=== PATIENT | female | born 1955 | race Caucasian/White ===

== ENCOUNTER 2022-09-08 01:02 | Day surgery (SDC) | payer MEDICARE, OTHER, SELFPAY ==
--- NOTE | 2022-08-28 11:48 | PC.NURSE ---
Report to the Outpatient Waiting Room, entrance under the green pavilion located off [facility], at time 0600 on date _09/08/22 . OR Time: __07 . Time changes happen often and if your time is changed the preop area will call you the afternoon before. - You and your visitor will be asked to self-screen and do not enter if you have any COVID symptoms. - We encourage only one visitor and NO visitors under age 16 are allowed at this time. Your visitor will receive communication by the phone number that is given day of service. - The patient visitor is requested to social distance or may leave the building when not with patient due to restrictions. - A mask is required within the hospital. Patients may have clear liquids (water, carbonated beverages, clear teas, apple juice) until 3 hours prior to surgery with a maximum of 20 ounces. - No food from midnight until time of surgery - Infants may have breast milk until 4 hours before surgery, infant formula 6 hours prior to surgery. - Children will be allowed to drink immediately following surgery. If applicable, please bring a bottle or sippy cup to assist with drinking. Juice, water, soda, and popsicles are readily available. For infants on formula, please bring formula the day of surgery. Pacifiers are allowed. Take the following medications with a SIP of water the morning of surgery: NONE Medications to discontinue per physician ___ALL VITAMINS AND SUPPLEMENTS 3 DAYS PRE OP Date to take last dose____09/04/22 Please no make-up, nail luxembourger, hairspray, perfume, deodorant, or body powder the day of surgery. No jewelry (including any body piercings) or valuables the day of surgery, leave them at home. Please take a shower or bath the night before, or the morning of, surgery with an antibacterial soap. Wear comfortable, loose fitting clothing. Children are encouraged to wear pajamas. - Jewelry must be removed prior to entering the operating room. Rings and piercings that are not removed may be cut off. - The hospital will not accept responsibility for valuables. - Please leave all valuables, including medications, at home the day of surgery. If you are going home after surgery, a licensed driver's license reviewing officer must drive you home. - NO public transportation without another adult. - We recommend that an adult stay with you for 24 hours following discharge. - We also recommend that you do not drive, make important decision, drink alcoholic beverages, or take any drugs that were not prescribed by your health care provider for at least 24 hours after your discharge time. For Pediatric surgeries, we recommend two adults accompany the child home. Follow any additional instructions given to you from your surgeon. If you or anyone in your household have experienced Covid symptoms in the past week, please notify your surgeon or the nurse liaison at the phone number below for possible testing. Telephone instructions given to __PATIENT and asked if any additional questions and then verbalized understanding. Patient advised to call surgeon office or pre surgery nurse liaison [phone] if any additional questions.
[2022-08-28 11:58] VITALS: BMI 24.5
--- NOTE | 2022-09-07 13:53 | WPDANESEPPF ---
Anes - Initial Pre Proc Eval Procedure: Operation Date: 09/08/22 10:00 Proposed Procedures p Arthrodesis of First Metatarsal Phalangeal Joint Left Foot, Arthrodesis of the Proximal Interphalangeal Joint Left Foot, Herman Shortening Second Metatarsal Osteotomy Left Foot - Shamir Garcia JR, MD Date/Time: 09/07/22 13:53 Surgeon: Shamir Garcia JR, MD Pre Op Diagnosis: Rec Bunion Lt Foot,Hammertoe 2nd Digit Lt Foot Patient Data Age: 67 Gender: F Height: 1.65 m Weight: 66.7 kg Allergies Allergy/AdvReac Type Severity Reaction Status Date / Time codeine AdvReac Hallucinati Verified 08/28/22 11:37 ng iobitridol AdvReac Hives Verified 08/28/22 11:54 lisinopril AdvReac Cough Verified 08/28/22 11:38 Home Medications Medication Instructions Recorded Confirmed Type calcium carbonate 600 mg-vitamin 1 tablet PO DAILY 08/28/22 08/28/22 History D3 5 mcg (200 unit) tablet (Calcium 600 + D(3)) cetirizine 10 mg tablet (Zyrtec) 10 mg PO DAILY 08/28/22 08/28/22 History diphenhydramine HCl 25 mg capsule 25 mg PO HS PRN Insomnia 08/28/22 08/28/22 History (Benadryl) lysine 500 mg tablet 500 mg PO HS 08/28/22 08/28/22 History magnesium 250 mg tablet 250 mg PO HS 08/28/22 08/28/22 History melatonin 5 mg tablet 5 mg PO HS PRN Insomnia 08/28/22 08/28/22 History ymztidbq-syw-xnzab ac 400 1 tablet PO HS 08/28/22 08/28/22 History mcg-calcium carb 500 mg-vit K1 20 mcg tablet (Women's 50 Plus Multivitamin) temazepam 15 mg capsule 15 mg PO PRN PRN Insomnia 08/28/22 08/28/22 History tramadol 50 mg PO PRN PRN Pain 08/28/22 08/28/22 History Patient hx anesthesia problems: none Family hx anesthesia problems: none Results Review: All pre-operative results and documents have been reviewed as part of the pre-operative evaluation. [facility] Past Medical History Medical History (Updated 09/08/22 @ 08:26 by Maikol Manrique DO) Osteoarthritis Social History Social History Smoking status: Never smoker Alcohol intake: current Drinks per week: 7 Living arrangements: with family Spiritual care concerns: No Anes - Eval Final PreProcedure Day of Procedure 09/07/22 13:53 Patient weight: obese Heart: regular rate and rhythm Lungs: clear to auscultation Airway: Mallampati scale class II Neurological: alert and oriented Last oral intake: >/= 8 hours ASA classification: II Emergent: no Anesthetic plan: proceed Anesthesia type and monitoring: general LMA and standard monitoring Results Review: All pre-operative results and documents have been reviewed as part of the pre-operative evaluation. Informed Consent: The patient's anesthetic plan and its attendant risks and benefits were discussed with the patient/family/POA. Questions were solicited and answers provided to the satisfaction of the patient/family/POA.
[2022-09-08] VITALS (7 sets, daily range): BP systolic 128–141; BP diastolic 64–88; PULSE 50–61; RESP 10–20; TEMP 36.3–36.4; O2SAT 94–100
--- NOTE | ~2022-09-08 | XR_ITS ---
EXAMINATION: XR surgery orthopedic DATE: 09/08/2022 11:24 INDICATION: Left first metatarsophalangeal and proximal interphalangeal arthrodesis and second metata rsal osteotomy. TECHNIQUE: 4 fluoroscopic images of the left forefoot were obtained during procedure performed by Dr. Garcia. Radiologist was not present for the imaging or procedure. The amount of fluoroscopy time u sed during this procedure was 0.4 minutes. COMPARISON: None. FINDINGS: Likely realignment osteotomy at the neck of the first metatarsal and first metatarsophalangeal arthro desis with dorsal plate and screw fixation and additional obliquely directed screw which was placed o rosales a percutaneous wire which extends from the medial side of the base of the proximal phalanx proxim al and laterally across the head fragment of the first metatarsal. Likely revision of a prior osteoto my at the head of the second proximal phalanx and percutaneous pin fixation extending from the tuft o f the second distal phalanx to the middle phalanx to the base of the second proximal phalanx. Finally there is an osteotomy with screw fixation at the neck of the second metatarsal with secondary slight shortening of the metatarsal. Expected small amount of postoperative gas in the second toe including in the second metatarsophalangeal and second proximal interphalangeal joint space. Near anatomic ali gnment of the axes of the first and second rays on the final images. No fractures identified. IMPRESSION: 1. Fluoroscopy utilized during orthopedic procedure on the first and second rays of the left foot as detailed above. See procedure note for further detail. Reviewed, dictated and finalized at location A. IMPRESSION: 1. Fluoroscopy utilized during orthopedic procedure on the first and second ray s of the left foot as detailed above. See procedure note for further detail.
--- NOTE | 2022-09-08 07:13 | WPDHPUPDATE1 ---
History and Physical Update Update Date/Time: 09/08/22 07:13 History and Physical has been reviewed, including an updated exam of the patient. There are NO changes in the patient's condition. Risks, benefits, and alternatives have been discussed and questions answered. Patient agrees to proceed with procedure.
[2022-09-08] MEDS: LACTATED RINGERS 1,000 ML 30 ML IV CONT ×2 (08:29→11:40)
--- NOTE | 2022-09-08 09:08 | WPDANESPNB ---
Anes - Peripheral Nerve Block Date/Time: 09/08/22 09:08 I have discussed with the patient/family/POA the placement of a peripheral nerve block for post-operative pain management, including associated risks, benefits, complications, and side effects. Alternative methods of post-operative analgesia were detailed. Questions were solicited and answers provided to the satisfaction of the patient/family/POA. Time-Out: A pre-procedural Time-Out was completed immediately before starting the procedure and confirmed: Patient Identification, Site, Procedure, Patient Position and the Availability of Requisite Equipment. Clinical Indications: Acute post-operative pain management requested by the operative surgeon. Nerve Block Insertion Note Anes-nerve block: posterior fossa sciatic left and adductor canal left Patient position: supine (for adductor canal) and other (right lateral for popliteal) Skin prep: chlorhexidine Needle: 22 gauge, stimulating, insulated echogenic needle. Needle length: 80 mm Technique: nerve stimulation lost at (mA) (for popliteal lost at 0.2) and ultrasound Injectate: bupivacaine 0.5% with epi 5 mcg/ml (20 mL for popliteal, 10 mL for adductor canal (no epi)) Observations: tolerated well Complications: none Procedure start time:: 899 Procedure end time:: 905
[2022-09-08] MEDS: ceFAZolin 2 GM/D5W 50 ML 2 GM/50 ML BAG IVPB (09:13)
[2022-09-08] MEDS: KETOROLAC 15 MG/ML VIAL (*BKC) IV PUSH (09:20)
[2022-09-08] MEDS: HEPARIN SODIUM 5,000 UNITS/ML VIAL 5000 UNITS IRRIGATION (10:08)
--- NOTE | 2022-09-08 12:19 | W.PM.PROC2 ---
Procedure Note - Detailed Date of Procedure 09/08/22 Pre-op Diagnosis 1. Recurrent bunion deformity left foot 2. Hammertoe 2nd digit left foot 3. Metatarsalgia 2nd digit left foot Post-op Diagnosis Same Procedure Performed 1. Removal of deep orthopedic implant left first metatarsal phalangeal joint left foot 2. Bone block arthrodesis of the first metatarsal phalangeal joint left foot 3. Herman Shortening 2nd metatarsal osteotomy left foot 4. Hammertoe repair 2nd digit left foot with proximal interphalangeal joint arthrodesis Surgeon Shamir Garcia JR, DPErnesto Indications Recurrent painful bunion left foot with abutment against the second digit Findings Mild deterioration with no metallosis of the the first metatarsal phalangeal joint left foot Description of Procedure PROCEDURE IN DETAIL: Under mild sedation, the patient was brought into the operating room, placed on the operating table in supine position. A pneumatic ankle tourniquet was placed about the patient's ipsilateral ankle. Following general anesthesia and a popliteal fossa block, the foot was then scrubbed, prepped, and draped in the usual aseptic manner. An Esmarch bandage was then used to exsanguinate the patient's foot and the pneumatic ankle tourniquet was then inflated. Surgery began in the following manner: Attention was directed to the dorsal aspect of the 1st metatarsophalangeal joint where the hallux was subluxed dorsal medially with abutment against the second digit. There was significant rigidity to the first metatarsal phalangeal joint as the hallux was scarred in abductus. I made two linear converging semi elliptical incisions excising the old incision over the first metatarsal phalangeal joint. I started the incision from the central shaft of the 1st metatarsal and extending just proximal to the interphalangeal joint of the hallux. The incision was continued deep down through the subcutaneous tissues using sharp and blunt dissection. All bleeders were cauterized as necessary. At this point, the dissection was continued down to the level of the periosteum and capsular structures overlying the 1st metatarsophalangeal joint. A full length periosteum and capsular incision was made just medial to the extensor hallucis longus tendon. The periosteum and capsular structures were freed from the base of the proximal phalanx as well as the distal 1st metatarsal. At this point, the 1st metatarsophalangeal joint silastic implant and grommets were identified and removed in toto and discarded. No signs of infection noted. There was loss of length to the first ray after removal of the implant. I removed all the fibrous tissue within the canal of the distal first metatarsal and base of the proximal phalanx. All hypertrophic bone was resected and smoothed out with a power bur. Next, I utilized the reamer system for the [employer] 28 first metatarsal phalangeal joint revision system to prepare and shape the distal metatarsal and base of the proximal phalanx in a cup and cone fashion. I flushed the area thoroughly with copious amounts of sterile saline. Next, a 2-0 drill bit was used to further fenestrate the distal 1st metatarsal as well as the base of the proximal phalanx in order to allow fusion across the 1st metatarsophalangeal joint. I utilized the [employer] 28 trial sizers to measure the anticipated size of the allograft. A 9mm by 5mm graft was chosen and placed in a small sterile specimen cup with sterile water to reconstitute the graft. I made a small stab incision 3cm inferior to the distal lateral malleolus free of the path of the sural nerve, the incision was 5mm in length along the lateral wall of the calcaneus. A curved mosquito hemostat was dissect and expose the periosteum over the lateral calcaneus. Next, I utilized the [place] 28 bone marrow aspirate kit with the provided trocar and cannula to obtain 10cc's of bone marrow aspirate, it was mixed with Heparin. I allowed the allograft to
== END 2022-09-08 13:18 | disposition home or self-care (01) ==
PROVIDERS: PCP Family Medicine; Visit Provider Podiatrist Foot & Ankle Surgery
PROC: (CPT 28750; principal; 2022-09-08 10:00)
DX: M21.612 Bunion of left foot (principal); M20.42 Other hammer toe(s) (acquired), left foot; M77.42 Metatarsalgia, left foot; G89.18 Other acute postprocedural pain
CPT/HCPCS: 28755; 28285; 28308; 64445; 64447; 99199; C1713; J0131; J0690; J1100; J1644; J1885; J2250; J2370; J2405; J2704; J3010; J7120